=== PATIENT | female | born 1980 | race Caucasian/White ===

== ENCOUNTER 2016-09-11 18:18 | Emergency (ER) | payer OTHER ==
[~2016-09-11] VITALS: Ht 175.3 cm; Wt 101.6 kg
[2016-09-11 18:23] VITALS: BP 152/108; PULSE 84; RESP 20; TEMP 98; O2SAT 99
[2016-09-11] MEDS ORDERED: SODIUM CHLOR 0.9% 1000 ML INJ 1,000 ML IV ONE (19:30)
[2016-09-11] MEDS ORDERED: ONDANSETRON HCL 4 MG/2 ML VIAL IVP ONE (19:30)
[2016-09-11] MEDS ORDERED: MORPHINE SULFATE 4 MG/ML INJ IV PUSH ONE (19:30)
[2016-09-11] MEDS ORDERED: KETOROLAC TROMETHAMINE 30 MG/ML (IVP) VIAL IVP ONE (19:30)
[2016-09-11 19:47] LABS: AUTOMATED NEUTROPHIL # 3.6 TH/MM3 (1.8-7.7); BASOPHIL # 0.1 TH/MM3 (0-0.2); BASOPHIL % 0.7 % (0.0-2.0); EOSINOPHIL # 0.1 TH/MM3 (0-0.4); EOSINOPHIL % 1.6 % (0.0-4.0); HEMATOCRIT 38.2 % (35.0-46.0); HEMO FLAGS DIFF FINAL; LYMPH % 43.1 % (9.0-44.0); LYMPHOCYTE # 3.2 TH/MM3 (1.0-4.8); MEAN CELL VOLUME 91.2 FL (80.0-100.0); MONO % 7.1 % (0.0-8.0); NEUT % 47.5 % (16.0-70.0); PLATELET COUNT 348 TH/MM3 (150-450); RED BLOOD COUNT 4.18 MIL/MM3 (4.00-5.30); RED CELL DISTRIBUTION WIDTH 12.1 % (11.6-17.2); WHITE BLOOD COUNT 7.5 TH/MM3 (4.0-11.0)
[2016-09-11 19:57] VITALS: BP 147/97; PULSE 76; RESP 18; O2SAT 100
[2016-09-11 19:58] LABS: CHLORIDE 104 MEQ/L (98-107); SODIUM (NA) 139 MEQ/L (136-145)
[2016-09-11 20:01] LABS: BLOOD, URINE TRACE (NEG); GLUCOSE,URINE NEG (NEG); KETONE, URINE NEG (NEG); NITRITE,URINE NEG (NEG); PH, URINE 5.5 (5.0-8.5)
[2016-09-11 20:02] LABS: ANION GAP 7 MEQ/L (5-15); BICARBONATE 27.7 MEQ/L (21.0-32.0); BLOOD UREA NITROGEN 11 MG/DL (7-18)
[2016-09-11 20:05] LABS: ALT (GPT) 35 U/L (10-53); AST (GOT) 18 U/L (15-37); GLOMERULAR FILTRATION RATE 88 ML/MIN (>89)
[2016-09-11 20:07] LABS: TOTAL BILIRUBIN ADULT 0.3 MG/DL (0.2-1.0)
[2016-09-11 20:08] LABS: ALKALINE PHOSPHATASE 65 U/L (45-117)
[2016-09-11 20:21] LABS: MUCUS URINE MOD /lpf (OCC); RBC, URINE 0-3 /hpf (0-3); SQUAMOUS EPITHELIAL CELL URINE > 8 /hpf (0-5); URINE COLOR YELLOW (YELLW/STRAW)
[2016-09-11 20:22] LABS: BACTERIA, URINE RARE /hpf; COMMENT (UR) CULT NOT INDICATED; CULTURE IF INDICATED CULT NOT INDICATED
[2016-09-11 20:55] VITALS: BP 135/92; PULSE 74; RESP 18; O2SAT 98
--- NOTE | 2016-09-11 21:58 | PD ---
HPI Chief Complaint: Pain: Acute or Chronic Time Seen by Provider: 19:22 Travel History International Travel<30 days: No Contact w/Intl Traveler<30days: No Traveled to known affect area: No History of Present Illness HPI 35-year-old female presents to the emergency department for complaint of right flank and back pain since yesterday progressively worsening. Symptoms are worsened by movement and taking a deep breath. Patient denies any trauma or injury. Patient's had no fever or chills. Patient denies nausea or vomiting. Patient denies abdominal pain. Patient rates discomfort 8/10 in intensity. Patient states symptoms worsened by resting on her back or sitting down some relief with standing upright or rubbing on her back. Patient denies tobacco use or control pill use. No personal history of family history of clotting disorder. Patient denies exacerbation with dietary intake and no prior history of gallbladder disease dyslipidemia/hypertriglyceridemia or alcohol use. No history of peptic ulcer disease pancreatitis or biliary colic. Patient also denies any dysuria frequency urgency or hematuria. No prior history of kidney stones. 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 Patient's had no shortness of breath. No chest pain. Patient's last menstrual cycle was one week ago normal for her and denies . No lower extremity referred pain no numbness or tingling or weakness no saddle anesthesia no bladder or bowel dysfunction. PFSH Past Medical History Narrative Medical Negative past history negative surgical history last period one week ago smoked : No tobacco use alcohol use; Medical History: Denies Significant Hx Tetanus Vaccination: > 5 Years Influenza Vaccination: No ?: Not LMP: 1 WEEK AGO Past Surgical History Surgical History: No Previous Surgery Social History Alcohol Use: Yes (~1 X WEEKLY) Tobacco Use: No Substance Use: No Allergies-Medications (Allergen,Severity, Reaction): Coded Allergies: No Known Allergies (Unverified , 09/11/16) Reported Meds & Prescriptions Reported Meds & Active Scripts Active No Active Prescriptions or Reported Medications Review of Systems Except as stated in HPI: all other systems reviewed are Neg General / Constitutional: No: Fever, Chills HENT: No: Congestion, Neck Pain Cardiovascular: No: Chest Pain or Discomfort Respiratory: Positive: Pleuritic Pain, No: Shortness of Breath Gastrointestinal: No: Nausea, Vomiting, Diarrhea, Abdominal Pain Genitourinary: Positive: Flank Pain, No: Dysuria, Hematuria Musculoskeletal: Positive: Pain, No: Myalgias, Arthralgias Skin: No Rash Neurologic: No: Weakness Psychiatric: No: Anxiety Endocrine: No: Heat Intolerance Hematologic/Lymphatic: No: Easy Bruising Physical Exam Narrative GENERAL: Well-developed well-nourished male in no acute respiratory distress appears to be in discomfort. SKIN: Warm and dry. No vesicular rash to the right flank area. HEAD: Normocephalic. EYES: No scleral icterus. No injection or drainage. NECK: Supple, trachea midline. No JVD or lymphadenopathy. CARDIOVASCULAR: Regular rate and rhythm without murmurs, gallops, or rubs. RESPIRATORY: Breath sounds equal bilaterally. No accessory muscle use. GASTROINTESTINAL: Abdomen soft, non-tender, nondistended. MUSCULOSKELETAL: No cyanosis, or edema. BACK: Nontender without obvious deformity. Tenderness to percussion to the right flank /CVA tenderness. Data Data Last Documented VS Vital Signs Date Time Temp Pulse Resp B/P Pulse Ox O2 Delivery O2 Flow Rate FiO2 09/11/16 20:55 74 18 09/11/16 20:55 135/92 98 Room Air 09/11/16 18:23 98.0 Orders Complete Blood Count With Diff (09/11/16 19:22) Comprehensive Metabolic Panel (09/11/16 19:22) Urinalysis - C+S If Indicated (09/11/16 19:22) Ed Urine Pregnancytest Poc (09/11/16 19:22) Ecg Monitoring (09/11/16 19:22) Iv Access Insert/Monitor (09/11/16 19:22) Ketorolac Inj (Toradol Inj) (09/11/16 19:30) Ondansetron Inj (Zofran Inj) (09/11/16 19:30) Sodium Chlor 0.9% 1000 Ml Inj (Ns 1000 M (09/11/16 19:30) Morphine Inj (Morphine Inj) (09/11/16 19:30) D-Dimer (09/11/16 20:27) Ct Abd/Pel W/O Iv Contrast (09/11/16 ) Labs Laboratory Tests Test 09/11/16 09/11/16 09/11/16 19:30 19:40 20:45 Urine Color YELLOW Urine Turbidity CLEAR Urine pH 5.5 Urine Specific Marceline 1.020 Urine Protein NEG mg/dL Urine Glucose (UA) NEG mg/dL Urine Ketones NEG mg/dL Urine Occult Blood TRACE Urine Nitrite NEG Urine Bilirubin NEG Urine Leukocyte Esterase TRACE Urine RBC 0-3 /hpf Urine WBC 3-5 /hpf Urine Squamous Epithelial > 8 /hpf Cells Urine Bacteria RARE /hpf Urine Mucus MOD /lpf Microscopic Urinalysis Comment CULT NOT INDICATED White Blood Count 7.5 TH/MM3 Red Blood Count 4.18 MIL/MM3 Hemoglobin 13.0 GM/DL Hematocrit 38.2 % Mean Corpuscular Volume 91.2 FL Mean Corpuscular Hemoglobin 31.0 PG Mean Corpuscular Hemoglobin 34.0 % Concent Red Cell Distribution Width 12.1 % Platelet Count 348 TH/MM3 Mean Platelet Volume 7.1 FL Neutrophils (%) (Auto) 47.5 % Lymphocytes (%) (Auto) 43.1 % Monocytes (%) (Auto) 7.1 % Eosinophils (%) (Auto) 1.6 % Basophils (%) (Auto) 0.7 % Neutrophils # (Auto) 3.6 TH/MM3 Lymphocytes # (Auto) 3.2 TH/MM3 Monocytes # (Auto) 0.5 TH/MM3 Eosinophils # (Auto) 0.1 TH/MM3 Basophils # (Auto) 0.1 TH/MM3 CBC Comment DIFF FINAL Differential Comment Sodium Level 139 MEQ/L Potassium Level 4.0 MEQ/L Chloride Level 104 MEQ/L Carbon Dioxide Level 27.7 MEQ/L Anion Gap 7 MEQ/L Blood Urea Nitrogen 11 MG/DL Creatinine 0.75 MG/DL Estimat Glomerular Filtration 88 ML/MIN Rate Random Glucose 96 MG/DL Calcium Level 8.8 MG/DL Total Bilirubin 0.3 MG/DL Aspartate Amino Transf 18 U/L (AST/SGOT) Alanine Aminotransferase 35 U/L (ALT/SGPT) Alkaline Phosphatase 65 U/L Total Protein 7.7 GM/DL Albumin 4.1 GM/DL D-Dimer Quantitative (PE/DVT) 0.20 MG/L FEU [facility] Medical Decision Making Medical Screen Exam Complete: Yes Emergency Medical Condition: Yes Medical Record Reviewed: Yes Interpretation(s) Vital Signs Date Time Temp Pulse Resp B/P Pulse Ox O2 Delivery O2 Flow Rate FiO2 09/11/16 20:55 74 18 09/11/16 20:55 74 18 135/92 98 Room Air 09/11/16 20:48 18 09/11/16 20:07 18 09/11/16 19:57 76 18 147/97 100 Room Air 09/11/16 18:23 98.0 84 20 152/108 99 CBC & BMP Diagram 09/11/16 19:40 Last Impressions Abdomen/Pelvis CT 09/11/16 0000 Signed Impressions: Service Date/Time: Sunday, September 11, 2016 21:32 - CONCLUSION: No acute inflammatory process. No renal calculi or hydronephrosis. 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 saline 1 L along with morphine sulfate 3 mg IV Zofran 4 mg IV and Toradol 30 mg IV CBC metabolic panel urinalysis resulted and found to be in normal range D-dimer: 0.2, not elevated; patient sent for CT abdomen and pelvis kidney stone protocol Patient reports pain has improved for over 10 intensity after medication administration Patient informed of lab results and imaging results pain has decreased to 4/10 in intensity patient feels much improved is aware that CBC complete metabolic panel urinalysis and d-dimer values are all within normal range and no acute abnormal findings; also aware CT abdomen and pelvis does not identify any lower lung abnormality liver or gallbladder abnormality specifically no dilated ducts or stones identified also normal-appearing appendix and no findings for obstructive uropathy nephrolithiasis or ureterolithiasis and per CT findings normal-appearing reproductive organs. Patient continues to have reproducible palpable tenderness to the right flank and chest wall without rash or erythema no fluctuance no induration. At this point time no indication for shingles. Patient appears to have some type of musculoskeletal inflammatory process with possible spasm and will be discharged prescription for tramadol and Robaxin and is to use weight-based ibuprofen as tolerated. Patient was given work excuse times one day encouraged to follow-up with her primary care provider. Patient also encouraged to return to the emergency department for any recurrent symptoms or change in condition. Diagnosis Primary Impression: Flank pain, acute Referrals: Primary Care Physician call for appointment Patient Instructions: General Instructions, Narcotic given in the ED Additional Instructions: Take ibuprofen/Advil/Motrin 600 mg as often as every 6 hours or 800 mg as often as every 8 hours as needed for pain associated inflammation Take muscle relaxant as prescribed as needed as tolerated be aware may impair judgment delay reaction time do not drive with this medication Take pain medication as prescribed as needed as tolerated. Aware may impair judgment, delay reaction time, increased risk for fall, and do not take this medication with driving or alcoholic beverages Increase fluid hydration Apply moist heat to affected area Follow-up with primary care provider call office to schedule appointment No work times one day Return to the emergency department for any concerns or change in condition Med/Other Pt SpecificInfo: Prescription(s) given Scripts Tramadol 50 Mg Tab50 Mg PO Q6H PRN (PAIN) #15 TAB Ref 0 Prov:Thu Bishop MD 09/11/16 Methocarbamol (Robaxin)750 Mg [id number] Mg PO Q6HR #12 TAB Ref 0 Prov:Thu Bishop MD 09/11/16 Disposition: 01 DISCHARGE HOME Condition: Stable Thu Bishop MD Sep 11, 2016 21:58
--- NOTE | 2016-09-11 22:07 | RADHPO ---
EXAM DATE/TIME: 09/11/2016 21:32 [facility] COMPARISON: No previous studies available for comparison. INDICATIONS : Right upper back pain. Evaluate for renal stone. ORAL CONTRAST: No oral contrast ingested. RADIATION DOSE: 20.94 CTDIvol (mGy) MEDICAL HISTORY : None SURGICAL HISTORY : None. ENCOUNTER: Initial ACUITY: 1 day PAIN SCALE: 4/10 LOCATION: Right upper back. TECHNIQUE: Volumetric scanning of the abdomen and pelvis was performed. Using automated exposure control and ad justment of the mA and/or kV according to patient size, radiation dose was kept as low as reasonably achievable to obtain optimal diagnostic quality images. FINDINGS: LOWER LUNGS: The visualized lower lungs are clear. LIVER: Homogeneous density without lesion. There is no dilation of the biliary tree. No calcified gallston es. SPLEEN: Normal size without lesion. PANCREAS: Within normal limits. KIDNEYS: Normal in size and shape. There is no mass, stone, or hydronephrosis. ADRENAL GLANDS: Within normal limits. VASCULAR: There is no aortic aneurysm. BOWEL/MESENTERY: The stomach, small bowel, and colon demonstrate no acute abnormality. There is no free intraperitone al air or fluid. Normal appendix. ABDOMINAL WALL: Within normal limits. RETROPERITONEUM: There is no lymphadenopathy. BLADDER: No wall thickening or mass. REPRODUCTIVE: Within normal limits. INGUINAL: There is no lymphadenopathy or hernia. MUSCULOSKELETAL: Within normal limits for patient age. CONCLUSION: No acute inflammatory process. No renal calculi or hydronephrosis. Abelardo Shanks MD on September 11, 2016 at 22:03 Board Certified Radiologist. This report was verified electronically.
[2016-09-11] MEDS ORDERED: ROBA750T PO (22:24)
[2016-09-11] MEDS ORDERED: TRAM50TA PO (22:24)
[2016-09-11 22:31] VITALS: BP 135/92
== END 2016-09-11 22:35 | disposition home or self-care (01) ==
LOC: PHED 18:18
DX: R10.11 Right upper quadrant pain (principal); R07.81 Pleurodynia
CPT/HCPCS: 74176; 80053; 81001; 84703; 85025; 85379; 96361; 96374; 96375; 99284; J1885; J2270; J2405; J7030